=== PATIENT | female | born 1985 | race Caucasian/White ===

== ENCOUNTER 2022-04-09 20:44 | Emergency (ER) | payer OTHER ==
[2022-04-09 20:55] VITALS: BMI 40.0
[2022-04-09] MEDS ORDERED: ACETAMINOPHEN 325 MG TABLET (FP) PO ONE (22:16)
[2022-04-09] MEDS ORDERED: ACETAMINOPHEN 325 MG TABLET (FP) ONE (22:30)
[2022-04-09 22:32] LABS: URINE APPEARANCE CLEAR; URINE BILIRUBIN NEGATIVE (NEGATIVE); URINE COLOR YELLOW; URINE GLUCOSE (UA) NEGATIVE (NEGATIVE); URINE KETONE NEGATIVE (NEGATIVE); URINE LEUK ESTERASE NEGATIVE (NEGATIVE); URINE NITRITE NEGATIVE (NEGATIVE); URINE PROTEIN NEGATIVE (NEGATIVE); URINE UROBILINOGEN 0.2 mg/dL (0.2-1.0)
[2022-04-09 22:54] LABS: THROAT:GRP A STREP NOT DETECTED (NOTDETECTED)
[2022-04-09 23:21] VITALS: BP 122/61; PULSE 116; TEMP 99.7
== END 2022-04-10 00:36 | disposition home or self-care (01) ==
LOC: JERFT 20:44
DX: U07.1 COVID-19 (principal)
CPT/HCPCS: 0241U-QW; 81003; 87086; 87651; 99284-25

== ENCOUNTER 2022-10-30 08:00 | Inpatient (IN) | payer OTHER ==
[2022-10-30 09:14] VITALS: BMI 41.1
[2022-10-30] MEDS ORDERED: ELECTROLYTE-148 SOLN 500 ML IV ONE (09:43)
[2022-10-30] MEDS ORDERED: CITRIC ACID/SODIUM CITRATE 30 ML UNIT-DOSE CUP PO ONE (09:43)
[2022-10-30] MEDS ORDERED: ELECTROLYTE-148 SOLN 1,000 ML IV SCH (09:45)
[2022-10-30] MEDS ORDERED: FENTANYL CITRATE/PF 50 MCG/ML VIAL ONE (11:26)
[2022-10-30] MEDS ORDERED: morphine SULFATE (PF) 1 MG/2 ML SYRINGE ONE (11:26)
[2022-10-30] MEDS ORDERED: ONDANSETRON 4 MG/2 ML VIAL ONE (11:55)
[2022-10-30] MEDS ORDERED: OXYTOCIN 10 UNITS/ML VIAL ONE (11:55)
[2022-10-30] MEDS ORDERED: KETOROLAC TROMETHAMINE 30 MG/1 ML VIAL ONE (11:55)
[2022-10-30] MEDS ORDERED: ceFAZolin SODIUM 1 GM VIAL ONE (11:55)
[2022-10-30 12:36] LABS: CORD BASE EXCESS -1.8 mmol/L (0-2); CORD HCO3 24.4 mmHg (20-29); CORD PCO2 46.6 mmHg (30-78); CORD pH 7.336 (7.14-7.44)
[2022-10-30 12:51] LABS: CORD HCO3 26.1 mmHg (20-29); CORD PCO2 64.4 mmHg (30-78); CORD pH 7.225 (7.14-7.44)
[2022-10-30] MEDS ORDERED: oxyCODONE HCL 5 MG TABLET PO PRN (13:03)
[2022-10-30] MEDS ORDERED: ONDANSETRON 4 MG/2 ML VIAL IVPUSH PRN ×2 (13:03)
[2022-10-30] MEDS ORDERED: morphine SULFATE/PF 1 MG/2 ML (2cc Syringe - QUVA) SPIN ONE (13:03)
[2022-10-30] MEDS ORDERED: ACETAMINOPHEN 1000 MG/100 ML BAG IVPB ONE (13:06)
[2022-10-30] MEDS ORDERED: SIMETHICONE 80 MG TAB.CHEW (FP) PO PRN (13:16)
[2022-10-30] MEDS ORDERED: BENZOCAINE 20% 57 GM BOTTLE TP PRN (13:16)
[2022-10-30] MEDS ORDERED: IBUPROFEN 800 MG/8 ML IJ IVPB PRN (13:16)
[2022-10-30] MEDS ORDERED: METHYLERGONOVINE MALEATE 0.2 MG/1 ML AMP IM PRN (13:16)
[2022-10-30] MEDS ORDERED: BENZOCAINE 28 GM HEMORRHOIDAL OINTMENT TP PRN (13:16)
[2022-10-30] MEDS ORDERED: SENNOSIDES/DOCUSATE COMBO (SENNA PLUS) TABLET (UD) PO PRN (13:16)
[2022-10-30] MEDS ORDERED: ACETAMINOPHEN 325 MG TABLET (FP) PO PRN (13:16)
[2022-10-30] MEDS ORDERED: WITCH HAZEL 50% (TUCKS) 40 PAD/JAR PAD TP PRN (13:16)
[2022-10-30] MEDS: OXYTOCIN 20 UNITS in 0.9% NS 20 UNIT/1,000 ML INFUS.BAG IV SCH ×2 (15:19→18:12)
[2022-10-30] MEDS: CEFAZOLIN 1 GM in DEXTROSE 5%-WATER - 50 ML IVPB SCH (17:10)
[2022-10-31] MEDS: CEFAZOLIN 1 GM in DEXTROSE 5%-WATER - 50 ML IVPB SCH ×2 (01:02→09:35)
[2022-10-31] MEDS ORDERED: oxyCODONE HCL 5 MG TABLET PO PRN ×2 (01:16)
[2022-10-31 07:10] LABS: BASO % 0.4 % (0-2.0); HEMATOCRIT 28.2 % (32.4-45.2); HEMOGLOBIN 9.3 GM/dL (10.7-15.3); LYMPH % 22.9 % (8-40); MCH 27.6 pg (25.7-33.7); MCHC 32.9 g/dl (32.0-36.0); MEAN CELL VOLUME 84.1 fl (80-96); MEAN PLT VOLUME 7.9 fl (7.5-11.1); MONO % 9.5 % (3.8-10.2); NEUT % 65.2 % (42.8-82.8); PLATELET COUNT 222 10^3/uL (134-434); RBC 3.36 M/mm3 (3.60-5.2); RDW 14.3 % (11.6-15.6); WHITE BLOOD COUNT 9.3 K/mm3 (4.0-10.0)
[2022-10-31] MEDS: ENOXAPARIN NA (PORCINE) 40 MG/0.4 ML DISP.SYRIN SQ SCH (09:36)
[2022-10-31] MEDS: IBUPROFEN 600 MG TABLET (FP) PO PRN ×3 (09:36→20:32)
[2022-10-31] MEDS: PRENATAL VITAMINS W/ FOLIC ACID TABLET (FP) PO SCH (09:36)
[2022-10-31] MEDS ORDERED: BISACODYL 10 MG SUPP.RECT RC PRN (13:16)
[2022-11-01] MEDS: ENOXAPARIN NA (PORCINE) 40 MG/0.4 ML DISP.SYRIN SQ SCH (12:11)
[2022-11-01] MEDS: PRENATAL VITAMINS W/ FOLIC ACID TABLET (FP) PO SCH (12:11)
[2022-11-01] MEDS: IBUPROFEN 600 MG TABLET (FP) PO PRN (13:37)
[2022-11-02 01:29] VITALS: RESP 18
[2022-11-02] MEDS: ENOXAPARIN NA (PORCINE) 40 MG/0.4 ML DISP.SYRIN SQ SCH (09:03)
[2022-11-02] MEDS: PRENATAL VITAMINS W/ FOLIC ACID TABLET (FP) PO SCH (09:03)
[2022-11-02 09:08] LABS: BASO % 0.4 % (0-2.0); EOS % 2.9 % (0-4.5); HEMATOCRIT 28.1 % (32.4-45.2); HEMOGLOBIN 9.4 GM/dL (10.7-15.3); LYMPH % 24.6 % (8-40); MCH 28.3 pg (25.7-33.7); MCHC 33.6 g/dl (32.0-36.0); MEAN CELL VOLUME 84.2 fl (80-96); MEAN PLT VOLUME 8.1 fl (7.5-11.1); MONO % 9.9 % (3.8-10.2); NEUT % 62.2 % (42.8-82.8); PLATELET COUNT 271 10^3/uL (134-434); RBC 3.34 M/mm3 (3.60-5.2); RDW 14.9 % (11.6-15.6); WHITE BLOOD COUNT 8.9 K/mm3 (4.0-10.0)
[2022-11-02 10:20] VITALS: BP 104/69; PULSE 70; TEMP 98.3
[2022-11-02] MEDS: IBUPROFEN 600 MG TABLET (FP) PO PRN (11:30)
== END 2022-11-02 13:28 | disposition home or self-care (01) | DRG 540 ==
LOC: JLDR 08:00 → J3W 14:27
PROVIDERS: ADMIT Obstetrics & Gynecology; ATTEND Obstetrics & Gynecology
PROC: 10D00Z1 Extraction of Products of Conception, Low, Open Approach (ICD-10-PCS; principal; 2022-10-30)
PROC: 0UB70ZZ Excision of Bilateral Fallopian Tubes, Open Approach (ICD-10-PCS; 2022-10-30)
DX: O34.211 Maternal care for low transverse scar from previous cesarean delivery (principal); N85.8 Other specified noninflammatory disorders of uterus; O99.214 Obesity complicating childbirth; O99.02 Anemia complicating childbirth; Z3A.39 39 weeks gestation of pregnancy; O24.424 Gestational diabetes mellitus in childbirth, insulin controlled; Z30.2 Encounter for sterilization; Z37.0 Single live birth
CPT/HCPCS: 36415; 36600; 80048; 82803; 82962; 85025; 85610; 85730; 86780; 86850; 86900; 86901; 88302-TC; 88307-TC; C9803-CS; U0003; U0005